=== PATIENT | female | born 2000 | race Caucasian/White ===

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

== ENCOUNTER 2018-03-08 02:28 | Outpatient (CLI) | payer BC, MEDICAID ==
[2018-03-08 02:59] VITALS: BP 134/76
[2018-03-08] MEDS ORDERED: TERBUTALINE 1 MG/ML VIAL SUBQ ONE (03:25)
[2018-03-08 04:04] LABS: BILIRUBIN,URINE NEGATIVE (NEGATIVE); GLUCOSE, URINE (UA) NEGATIVE (NEGATIVE); KETONES,URINE (UA) NEGATIVE (NEGATIVE); LEUKOCYTE ESTERASE, URINE NEGATIVE (NEGATIVE); MUDS CUTOFF CONCENTRATIONS CUTOFF CONC BELOW:; NITRITE,URINE NEGATIVE (NEGATIVE); OCCULT BLOOD,URINE NEGATIVE (NEGATIVE); PH,URINE 6.5 PH (5.0-7.5); PROTEIN,URINE NEGATIVE (NEGATIVE); UROBILINOGEN,URINE 0.2 (NORMAL) E.U./dL (NORMAL)
[2018-03-08 04:08] LABS: CLARITY,URINE CLEAR (CLEAR)
[2018-03-08 04:16] LABS: AMPHETAMINE SCREEN,URINE NEGATIVE (NEGATIVE); BACTERIA,URINE Rare /HPF (None Seen); BENZODIAZEPINES SCREEN, URINE NEGATIVE (NEGATIVE); COCAINE SCREEN URINE NEGATIVE (NEGATIVE); METHADONE SCREEN, URINE NEGATIVE (NEGATIVE); METHAMPHETAMINES SCREEN, URINE NEGATIVE (NEGATIVE); OPIATE SCREEN, URINE NEGATIVE (NEGATIVE); OXYCODONE SCREEN, URINE NEGATIVE (NEGATIVE); PROPOXYPHENE SCREEN, URINE NEGATIVE (NEGATIVE); RBC,URINE 0-5 /HPF (0-5); SQUAMOUS EPITHELIAL CELL,UR FEW Squamous (<= Few); TRICYCLIC ANTIDEPRESSANT,URINE NEGATIVE (NEGATIVE)
[2018-03-08 04:18] LABS: RUPTURE OF MEMBRANES PLUS NEGATIVE (NEGATIVE)
== END 2018-03-08 05:07 | disposition home or self-care (01) ==
LOC: WFO 02:28 → FBP 02:31 → WFO 05:07
PROVIDERS: ATTEND Obstetrics & Gynecology
DX: O47.03 False labor before 37 completed weeks of gestation, third trimester (principal); Z3A.35 35 weeks gestation of pregnancy
CPT/HCPCS: 80306; 81001; 84112; 87086; 96372; 99214

== ENCOUNTER 2018-05-29 20:35 | Emergency (ER) | payer BC, MEDICAID ==
[2018-05-29 20:56] LABS: BILIRUBIN,URINE NEGATIVE (NEGATIVE); GLUCOSE, URINE (UA) NEGATIVE (NEGATIVE); KETONES,URINE (UA) NEGATIVE (NEGATIVE); LEUKOCYTE ESTERASE, URINE NEGATIVE (NEGATIVE); NITRITE,URINE NEGATIVE (NEGATIVE); OCCULT BLOOD,URINE NEGATIVE (NEGATIVE); PROTEIN,URINE NEGATIVE (NEGATIVE); UROBILINOGEN,URINE 0.2 (NORMAL) E.U./dL (NORMAL)
[2018-05-29 20:59] LABS: CLARITY,URINE CLEAR (CLEAR); HCG UR QUAL NEGATIVE
[2018-05-29] MEDS ORDERED: LIDOCAINE PATCH 5% TOP STA (22:19)
--- NOTE | 2018-05-29 22:26 | ED Physician Documentation ---
History of Present Illness - Stated complaint Stated Complaint: L SIDE PX - Chief complaint Chief Complaint: Abd Pain - History obtained from History obtained from: Patient - History of Present Illness Timing: How many weeks ago (1) Worsened by: movement, lifting - Additonal information Additional information: Patient is a 18 year old female with no significant past medical history who is presenting to the emergency department for left sided flank pain. patient states that it has been going on for about the last week or so. Patient states that the pain started after sleeping on a couch. Patient reports that it is worse when she is getting into and out of her car, or when she has to lift her baby. patient denies any nausea, vomiting or abdominal pain. Patient does report a history of kidney stones in the past, the largest being 5mm Review of Systems Ten Systems: 10 systems reviewed and negative Constitutional: denies: Fever, Chills Respiratory: denies: Cough, Hemoptysis, Wheezing GI: denies: Abdominal Pain, Nausea, Vomiting, Constipation, Diarrhea : reports: Dysuria. denies: Frequency, Hematuria, Discharge Skin: denies: Rash, Lesions Musculoskeletal: reports: Back pain. denies: Extremity pain PD PAST MEDICAL HISTORY - Past Surgical History Past Surgical History: Yes - Present Medications Home Medications: Ambulatory Orders Medication Instructions Recorded Confirmed Lidocaine Patch 5% [Lidoderm Patch] 1 each TOP DAILY #14 patch 05/29/18 - Allergies Allergies/Adverse Reactions: Allergies Allergy/AdvReac Type Severity Reaction Status Date / Time Penicillins Allergy Hives Verified 05/29/18 20:42 aspirin AdvReac Anxiety Verified 05/29/18 20:42 - Social History Does the pt smoke?: No Smoking Status: Never smoker Does the pt drink ETOH?: No Does the pt have substance abuse?: No - Immunizations Immunizations are current?: Yes - POLST Patient has POLST: No PD ED PE NORMAL - Vitals Vital signs reviewed: Yes - General General: Alert and oriented X 3, No acute distress, Well developed/nourished - HEENT HEENT: Atraumatic - Cardiac Cardiac: RRR - Respiratory Respiratory: No respiratory distress - Abdomen Abdomen: Soft, Non tender, Non distended - Derm Derm: Normal color, Warm and dry, No rash - Extremities Extremities: No deformity - Neuro Neuro: Alert and oriented X 3 PD ED PE EXPANDED - Back Back: Soft tissue tenderness (tenderness to palpation of left lower back, left fank area, no rash, no erythema) Results - Vitals Vitals: Vital Signs - 24 hr 05/29/18 20:39 Temperature 36.2 C L Heart Rate 85 Respiratory 14 Rate Blood Pressure 115/74 O2 Saturation 99 Oxygen O2 Source Room air - Labs Labs: Laboratory Tests 05/29/18 20:50 Urine Color YELLOW Urine Clarity CLEAR Urine pH 6.0 Ur Specific [place] 1.010 Urine Protein NEGATIVE Urine Glucose (UA) NEGATIVE Urine Ketones NEGATIVE Urine Occult Blood NEGATIVE Urine Nitrite NEGATIVE Urine Bilirubin NEGATIVE Urine Urobilinogen 0.2 (NORMAL) Ur Leukocyte Esterase NEGATIVE Ur Microscopic Review NOT INDICATED Urine Culture Comments NOT INDICATED Urine HCG, Qual NEGATIVE PD MEDICAL DECISION MAKING - ED course Complexity details: reviewed old records, reviewed results, re-evaluated patient , considered differential, d/w patient ED course: Patient was seen and examined at bedside. patient was well appearing and in no distress. patient's urine was collected and within normal limits. there was no sign of infection or renal stone. patient's symptoms were likely musculoskeletal in nature, but no imaging was indicated. Patient was treated with a lidoderm patch. Patient required no further work up and was stable for discharge with outpatient follow up. - Sepsis Event Vital Signs: Vital Signs - 24 hr 05/29/18 20:39 Temperature 36.2 C L Heart Rate 85 Respiratory 14 Rate Blood Pressure 115/74 O2 Saturation 99 Oxygen O2 Source Room air Departure - Departure Disposition: 01 Home, Self Care Clinical Impression: Rib pain on left side Condition: Good Instructions: ED Strain Chest Wall Follow-Up: Taylor Pena ARNP [Primary Care Provider] - As Needed Prescriptions: Lidocaine Patch 5% [Lidoderm Patch] 1 each TOP DAILY #14 patch Comments: Your diagnostics today were within normal limits. there is no sign of infection or kidney stones. Your symptom are likely secondary to a strain in your back/ribs. You should continue with tylenol as needed for pain. You can apply ice, heat or the topical lidoderm patches. You should follow up with your doctor if your symptoms persists. You may return to the emergency department at any time for new, worsening or uncontrollable symptoms.
[2018-05-29 22:32] VITALS: BP 120/71
== END 2018-05-29 22:35 | disposition home or self-care (01) ==
LOC: ED 20:35
DX: O99.89 Other specified diseases and conditions complicating pregnancy, childbirth and the puerperium (principal); R07.81 Pleurodynia
CPT/HCPCS: 81003; 81025; 99283; A9270; 81001; 87086

== ENCOUNTER 2018-12-22 20:58 | Emergency (ER) | payer BC, MEDICAID ==
--- NOTE | 2018-12-22 21:08 | ED Physician Documentation ---
PD HPI URI - Stated complaint Stated Complaint: FLU SYMPTOMS - Chief complaint Chief Complaint: Abd Pain - History obtained from History obtained from: Patient - History of Present Illness Timing - onset: Yesterday Timing details: Abrupt onset, Still present Associated symptoms: Fever, Chills, Sore throat, Dry cough, NVD (nausea with an episode of vomiting this evening. Poor PO intake whole day due to nausea though.) Contributing factors: No: Sick contact Similar symptoms before: Has not had sx before Recently seen: Not recently seen Review of Systems Constitutional: reports: Fever, Chills, Myalgias, Fatigue Throat: reports: Sore throat Cardiac: denies: Chest pain / pressure Respiratory: reports: Cough. denies: Dyspnea GI: reports: Nausea. denies: Vomiting, Diarrhea : denies: Dysuria Musculoskeletal: denies: Neck pain, Back pain Neurologic: reports: Headache. denies: Near syncope (but feeling very lightheaded with standing up.), Altered mental status PD PAST MEDICAL HISTORY - Past Medical History Cardiovascular: None Respiratory: None Neuro: None Endocrine/Autoimmune: None - Past Surgical History Past Surgical History: Yes - Present Medications Home Medications: Ambulatory Orders Medication Instructions Recorded Confirmed Acetaminophen [Tylenol] 650 mg PO ONCE 12/22/18 12/22/18 D-Methorphan/PE/Acetaminophen 1 each PO ONCE 12/22/18 12/22/18 [Theraflu Ms Severe Cold Pckt] Dexamethasone [Decadron] 4 mg PO DAILY #5 tablet 12/22/18 Ondansetron Odt [Zofran] 4 mg TL Q6H PRN #10 tablet 12/22/18 Oseltamivir [Tamiflu] 75 mg PO BID #10 capsule 12/22/18 Tramadol HCl 50 mg PO Q6H PRN #15 tablet 12/22/18 - Allergies Allergies/Adverse Reactions: Allergies Allergy/AdvReac Type Severity Reaction Status Date / Time Penicillins Allergy Hives Verified 12/22/18 21:06 aspirin AdvReac Anxiety Verified 12/22/18 21:06 - Social History Does the pt smoke?: No Smoking Status: Never smoker Does the pt drink ETOH?: No Does the pt have substance abuse?: No - Immunizations Immunizations are current?: Yes - POLST Patient has POLST: No PD ED PE NORMAL - Vitals Vital signs reviewed: Yes - General General: Alert and oriented X 3, No acute distress, Well developed/nourished - HEENT HEENT: Ears normal, Pharynx benign. No: Moist mucous membranes - Neck Neck: Supple, no meningeal sign, No adenopathy - Cardiac Cardiac: RRR (but tachycardic), No murmur - Respiratory Respiratory: Clear bilaterally - Abdomen Abdomen: Normal bowel sounds, Soft, Non tender, Non distended - Derm Derm: Normal color, Warm and dry, No rash - Neuro Neuro: Alert and oriented X 3, No motor deficit, Normal speech Results - Vitals Vitals: Vital Signs - 24 hr 12/22/18 12/22/18 12/22/18 21:02 22:41 23:28 Temperature 36.7 C 37.0 C Heart Rate 115 H 103 H 105 H Respiratory 18 16 18 Rate Blood Pressure 113/68 115/74 108/67 O2 Saturation 100 98 96 Oxygen O2 Source Room air - Labs Labs: Laboratory Tests 12/22/18 21:23 Influenza A (Rapid) Negative Influenza B (Rapid) Negative PD MEDICAL DECISION MAKING - ED course Complexity details: re-evaluated patient (Feeling improved with IV fluids and m edications.), considered differential (This sounds very flulike and she does seem dehydrated with headache and nausea. Some IV fluids with medications will be helpful. Will test for the flu. Discussed pros and cons of Tamiflu and they would opt for it.), d/w patient Departure - Departure Disposition: 01 Home, Self Care Clinical Impression: Flu-like symptoms Condition: Stable Record reviewed to determine appropriate education?: Yes Instructions: ED Flu Follow-Up: Taylor Pena ARNP [Primary Care Provider] - Prescriptions: Dexamethasone [Decadron] 4 mg PO DAILY #5 tablet Ondansetron Odt [Zofran] 4 mg TL Q6H PRN #10 tablet PRN Reason: Nausea / Vomiting Oseltamivir [Tamiflu] 75 mg PO BID #10 capsule Tramadol HCl 50 mg PO Q6H PRN #15 tablet PRN Reason: Pain Comments: This sounds like the flu or some other viral illness similar. Drink lots of fluids. Tylenol or ibuprofen if needed for fevers and aches. Add hydrocodone or tramadol if needed for pains. Use Decadron steroid anti-inflammatory daily further the next 5 days to help with general symptoms. Tamiflu twice daily for 5 days as this sounds like influenza even though your nasal swab is negative (there is an element of false negative rate for the test). Use ondansetron if needed for nausea. Likely will be ill for several more days to a week. Discharge Date/Time: 12/22/18 23:32
[2018-12-22] MEDS ORDERED: SODIUM CHLORIDE 0.9% 1,000 ML IV ONE ×2 (21:18→21:45)
[2018-12-22] MEDS ORDERED: DEXAMETHASONE 10 MG/ML VIAL IVP STA (21:18)
[2018-12-22] MEDS ORDERED: KETOROLAC 15 MG/ML VIAL IVP STA (21:18)
[2018-12-22] MEDS ORDERED: ONDANSETRON 4 MG/2 ML VIAL IVP STA (21:18)
[2018-12-22] MEDS ORDERED: MORPHINE 2 MG/ML CARPUJECT IVP STA (22:28)
[2018-12-22] MEDS ORDERED: ONDANSETRON ODT 4 MG Prepack 2 TL PRN (22:29)
[2018-12-22] MEDS ORDERED: HYDROcod/ACET 5/325 Prepack 4 PO STA (22:29)
[2018-12-22 23:29] VITALS: BP 108/67
== END 2018-12-22 23:32 | disposition home or self-care (01) ==
LOC: ED 20:58
DX: R50.9 Fever, unspecified (principal); R11.2 Nausea with vomiting, unspecified; R51 Headache; R05 Cough
CPT/HCPCS: 87275; 87276; 96361; 96374; 96375; 99283

== ENCOUNTER 2019-06-17 09:52 | Outpatient (CLI) | payer MEDICAID ==
[2019-06-17 10:19] VITALS: BP 128/60
--- NOTE | 2019-06-17 14:18 | Ultrasound Report ---
Reason: PLACENTAL INSUFFICIENCY Procedure Date: 06/17/2019 Accession Number: [id number] / [id number] Procedure: US - OB Biophysical Profile CPT Code: FULL RESULT: EXAM: BIOPHYSICAL PROFILE EXAM DATE: 06/17/2019 01:12 PM. CLINICAL HISTORY: PLACENTAL INSUFFICIENCY. COMPARISON: None. TECHNIQUE: Real-time sonographic evaluation of the fetus performed by the transplant case manager. Multiple outside dealer sales representative static images were saved for review. DATING: Established EGA weeks/days with VERA . GENERAL EVALUATION Roman . Cardiac activity: 154 bpm. movement: Visualized. Presentation: Cephalic. Placenta: Anterior position. No evidence for previa or abruption. Amniotic fluid: Normal. AURELIO 13.8 cm. MVP 5.7 cm. Cervical length: 2.2 cm (transvaginal assessment) BIOPHYSICAL PROFILE Breathing = 2 Movement = 2 Tone = 2 Amniotic Fluid = 2 Total 05/20 IMPRESSION: 1. Roman live intrauterine with gestational age 34 weeks 3 days based on established gestational age. 2. Biophysical profile score 8 of 8. JULIO C
--- NOTE | 2019-06-21 22:31 | PROCEDURE REPORT ---
- HPI Diagnosis/Indication for NST: Decreased movement Current EDU 07/26/19 Gestation 34 Weeks and 3 Days 3 Para 1 Vital Signs Temperature 97.9 F 06/17/19 10:06 Heart Rate 88 06/17/19 10:06 Respiratory Rate 16 06/17/19 10:06 Blood Pressure 128/60 06/17/19 10:06 O2 Saturation 100 06/17/19 10:06 Temperature 97.9 F 06/17/19 10:06 Heart Rate 88 06/17/19 10:06 Respiratory Rate 16 06/17/19 10:06 Blood Pressure 128/60 06/17/19 10:06 O2 Saturation 100 06/17/19 10:06 - NST Procedure NST Procedure Start Date 06/17/19 Start Time 10:08 Stop Time 11:04 Vibroacoustic Stimulation Used No Patient States Movement Yes - Results and Plan Findings/Impression: 19-year-old G3, P1 at 34 weeks 3 days here with decreased movement Category 1 tracing TOCO: Irritable/quiet Reactive reassuring NST. Warning signs reviewed Discharged home with follow-up with primary OB. Final diagnosis:decreased movement; reactive/category 1 tracing
== END 2019-06-17 14:56 | disposition home or self-care (01) ==
LOC: WFO 09:52 → FBP 10:01 → WFO 14:56
PROVIDERS: ATTEND Obstetrics & Gynecology
DX: O36.8130 Decreased fetal movements, third trimester, not applicable or unspecified (principal); Z3A.34 34 weeks gestation of pregnancy
CPT/HCPCS: 59025; 76819; 99214

== ENCOUNTER 2019-06-18 02:58 | Outpatient (CLI) | payer MEDICAID | END 2019-06-18 02:59 | disposition critical access hospital (66) | LOC: EMS 02:58 | PROVIDERS: ATTEND Surgery | DX: O99.89 Other specified diseases and conditions complicating pregnancy, childbirth and the puerperium (principal) | CPT/HCPCS: A0425; A0427; A0999 ==

== ENCOUNTER 2019-06-18 03:14 | Observation (INO) | payer MEDICAID ==
[2019-06-18 03:48] LABS: RUPTURE OF MEMBRANES PLUS NEGATIVE (NEGATIVE)
[2019-06-18] MEDS ORDERED: TERBUTALINE 1 MG/ML VIAL SUBQ ONE ×2 (04:10→04:23)
[2019-06-18] MEDS ORDERED: BETAMETHASONE 30 MG/5 ML VIAL IM ONE (04:22)
[2019-06-18] MEDS ORDERED: BETAMETHASONE 30 MG/5 ML VIAL ONE (04:34)
[2019-06-18] MEDS ORDERED: SODIUM CHLORIDE 0.9% 1,000 ML IV SCH (05:00)
[2019-06-18 05:27] LABS: MUDS CUTOFF CONCENTRATIONS CUTOFF CONC BELOW:
[2019-06-18 05:32] LABS: BILIRUBIN,URINE NEGATIVE (NEGATIVE); GLUCOSE, URINE (UA) NEGATIVE (NEGATIVE); KETONES,URINE (UA) NEGATIVE (NEGATIVE); LEUKOCYTE ESTERASE, URINE NEGATIVE (NEGATIVE); NITRITE,URINE NEGATIVE (NEGATIVE); OCCULT BLOOD,URINE NEGATIVE (NEGATIVE); PH,URINE 7.5 PH (5.0-7.5); PROTEIN,URINE NEGATIVE (NEGATIVE); UROBILINOGEN,URINE 0.2 (NORMAL) E.U./dL (NORMAL)
--- NOTE | 2019-06-18 05:37 | PREOP HISTORY & PHYSICAL ---
DATE OF SERVICE: 06/18/2019 Physician: Alfred Rojo MD IDENTIFICATION: Patient is a 19-year-old G3, P1, AB1 female whose EDC is July 26. This was determined by an 8-week ultrasound. Her last menstrual period is unknown. She is 34.4 weeks. CHIEF COMPLAINT: Suspected spontaneous rupture of membranes. HISTORY OF PRESENT ILLNESS: Patient was at home this night, at which time she peed, and then got up and felt additional fluid leak down her leg. She got in the car and proceeded to go to [place], but got as far as [place] and, because of a large gush of fluid, was brought via ambulance here to the hospital. She has not had any further trickling since arrival here. She has been seen in our labor and delivery yesterday for a nonstress test for a premature aging placenta, at which time she was noted to have a reactive strip, but a solitary deceleration. She had a BPP done, at which time she was noted to have 8/8, AURELIO was 13. Cervical length was 2.2 cm. PAST MEDICAL HISTORY: Positive for childhood leukemia. PAST SURGICAL HISTORY: Positive for wisdom teeth. ALLERGIES 1. ASPIRIN. 2. LATEX. 3. PENICILLIN. CURRENT MEDICATIONS: Those of vitamins. HABITS: Patient denies use of alcohol, tobacco, street or addictive drugs, or tetrahydrocannabinol. SOCIAL HISTORY: Patient is , lives with spouse and child. PHYSICAL EXAMINATION GENERAL: Patient is a well-developed, well-nourished female. She is in no acute distress at this time. VITAL SIGNS: Pulse is 102, blood pressure 122/73, respirations 18, temperature is 37.1. HEENT: Pupils are equal and round. Extraocular muscles intact. Mouth is clear. Thyroid is not enlarged. HEART: Regular rate and rhythm without murmurs. LUNGS: Lung ferro are clear without rales or wheezes. PELVIS: Gravid. It is nontender. Nonstress test shows a reactive category 1 strip. She is having occasional contractions, some of which are uncomfortable. Sterile speculum examination was performed, of which there was a negative pool, negative fern and negative nitrazine. She had a RomPlus also performed, which was interpreted to be negative. The brought in patient's underwear, at which time nitrazine was applied and it reacted to a pH of 6.0. A transabdominal ultrasound was performed, which an AURELIO of 10 was noted. There was a large pocket in the fundal area, which was 7 cm in size. LABORATORY DATA: Patient is O positive. She is rubella nonimmune. Her 50 gram Glucola was 77. IMPRESSION: A 19-year-old G3, P1 at 34.4 weeks, without evidence of rupture of membranes. She is having occasional moderate contractions. Her ultrasound from yesterday showed a 2.2 cm length cervix. We will admit the patient for observation. We will administer subcutaneous terbutaline 0.25 mg. We will see if this cannot cause the contractions to cease. We will also give patient betamethasone 12 mg IM. We will observe for further change or possible fluid leak. TD: 06/18/2019 04:39 ANH
[2019-06-18 05:41] LABS: AMPHETAMINE SCREEN,URINE NEGATIVE (NEGATIVE); BENZODIAZEPINES SCREEN, URINE NEGATIVE (NEGATIVE); COCAINE SCREEN URINE NEGATIVE (NEGATIVE); METHADONE SCREEN, URINE NEGATIVE (NEGATIVE); METHAMPHETAMINES SCREEN, URINE NEGATIVE (NEGATIVE); OPIATE SCREEN, URINE NEGATIVE (NEGATIVE); OXYCODONE SCREEN, URINE NEGATIVE (NEGATIVE); PROPOXYPHENE SCREEN, URINE NEGATIVE (NEGATIVE); TRICYCLIC ANTIDEPRESSANT,URINE NEGATIVE (NEGATIVE)
[2019-06-18 05:43] LABS: CLARITY,URINE CLEAR (CLEAR); RBC,URINE 0-5 /HPF (0-5); SQUAMOUS EPITHELIAL CELL,UR RARE Squamous (<= Few)
[2019-06-18 05:44] LABS: AMORPHOUS SEDIMENT,UR Rare /LPF; BACTERIA,URINE Rare /HPF (None Seen)
[2019-06-18 08:18] VITALS: BP 105/54
--- NOTE | 2019-06-18 09:04 | PROVIDER PROGRESS NOTE ---
Subjective - Prog Note Date Prog Note Date: 06/18/19 Prog Note Time: 09:02 - Subjective Pt reports feeling: Improved (Pt nicolette contractions. no fluid noah. notes good FM.) Objective - Vital Signs/Intake & Output Reviewed Vital Signs: Yes Vital Signs: Vital Signs x48h Temp Pulse Resp BP Pulse Ox 06/18/19 08:10 36.8 C 105 H 16 105/54 L 99 06/18/19 06:33 36.6 C 92 18 106/52 L 100 06/18/19 03:23 37.1 C 102 H 18 122/73 97 - Objective General Appearance: positive: No acute distress (right low back pain.), Alert Abdomen: positive: Non-tender, No organomegaly, Mass (non tender uterus) - Lab Results Other Labs: Lab Results x24hrs 06/18/19 06/18/19 Range/Units 05:10 03:22 Urine Color YELLOW Urine Clarity CLEAR (CLEAR) Urine pH 7.5 (5.0-7.5) PH Ur Specific [place] 1.010 (1.002-1.030) Urine Protein NEGATIVE (NEGATIVE) mg/dL Urine Glucose (UA) NEGATIVE (NEGATIVE) mg/dL Urine Ketones NEGATIVE (NEGATIVE) mg/dL Urine Occult Blood NEGATIVE (NEGATIVE) Urine Nitrite NEGATIVE (NEGATIVE) Urine Bilirubin NEGATIVE (NEGATIVE) Urine Urobilinogen 0.2 (NORMAL) (NORMAL) E.U./dL Ur Leukocyte Esterase NEGATIVE (NEGATIVE) Urine RBC 0-5 (0-5) /HPF Urine WBC 0-3 (0-5) /HPF Ur Squamous Epith Cells RARE Squamous (<= Few) Amorphous Sediment Rare /LPF Urine Bacteria Rare (None Seen) /HPF Urine Culture Comments NOT INDICATED Membranes Rupture NEGATIVE (NEGATIVE) Urine Opiates Screen NEGATIVE (NEGATIVE) Ur Oxycodone Screen NEGATIVE (NEGATIVE) Urine Methadone Screen NEGATIVE (NEGATIVE) Ur Propoxyphene Screen NEGATIVE (NEGATIVE) Ur Barbiturates Screen NEGATIVE (NEGATIVE) Ur Tricyclics Screen NEGATIVE (NEGATIVE) Ur Phencyclidine Scrn NEGATIVE (NEGATIVE) Ur Amphetamine Screen NEGATIVE (NEGATIVE) U Methamphetamines Scrn NEGATIVE (NEGATIVE) U Benzodiazepines Scrn NEGATIVE (NEGATIVE) Urine Cocaine Screen NEGATIVE (NEGATIVE) U Cannabinoids Screen NEGATIVE (NEGATIVE) Assessment/Plan - Problem List (1) contractions Impression: contractions have resolved. no evidence of SROM. Send home and followup with primary District Plant Supervisor. Call Ob and inform of events
== END 2019-06-18 10:00 | disposition home or self-care (01) ==
LOC: FBP 03:14 → WFO 03:14 → FBP 04:38
PROVIDERS: ADMIT Obstetrics & Gynecology; ATTEND Obstetrics & Gynecology
DX: O47.03 False labor before 37 completed weeks of gestation, third trimester (principal); Z3A.34 34 weeks gestation of pregnancy
CPT/HCPCS: 80306; 81001; 84112; 87797; 96372; 99214; G0378; 87086

== ENCOUNTER 2019-06-19 07:29 | Outpatient (CLI) | payer MEDICAID ==
[2019-06-19] MEDS ORDERED: BETAMETHASONE 30 MG/5 ML VIAL IM ONE (07:35)
[2019-06-19 07:52] VITALS: BP 116/76
--- NOTE | 2019-07-08 12:46 | PROVIDER PROGRESS NOTE ---
- HPI Chief Complaint: Labor Current : Vital Signs Temperature 36.8 C 06/19/19 07:50 Heart Rate 90 06/19/19 07:50 Respiratory Rate 16 06/19/19 07:50 Blood Pressure 116/76 06/19/19 07:50 O2 Saturation 100 06/19/19 07:50 Temperature 36.8 C 06/19/19 07:50 Heart Rate 90 06/19/19 07:50 Respiratory Rate 16 06/19/19 07:50 Blood Pressure 116/76 06/19/19 07:50 O2 Saturation 100 06/19/19 07:50 - Procedures NST Procedure: NST Procedure Start Time 10:08 Stop Time 11:04 - Plan Plan: P there for thretened labor. here to recieve second dose of 12 mg betamethazone.
== END 2019-06-19 07:54 | disposition home or self-care (01) ==
LOC: WFO 07:29 → FBP 07:32 → WFO 07:54
PROVIDERS: ATTEND Obstetrics & Gynecology
DX: O60.00 Preterm labor without delivery, unspecified trimester (principal)
CPT/HCPCS: 96372

== ENCOUNTER 2019-06-21 20:09 | Observation (INO) | payer MEDICAID ==
[2019-06-21 21:43] LABS: BILIRUBIN,URINE NEGATIVE (NEGATIVE); GLUCOSE, URINE (UA) NEGATIVE (NEGATIVE); KETONES,URINE (UA) NEGATIVE (NEGATIVE); LEUKOCYTE ESTERASE, URINE NEGATIVE (NEGATIVE); NITRITE,URINE NEGATIVE (NEGATIVE); OCCULT BLOOD,URINE NEGATIVE (NEGATIVE); PROTEIN,URINE NEGATIVE (NEGATIVE); UROBILINOGEN,URINE 0.2 (NORMAL) E.U./dL (NORMAL)
[2019-06-21 21:45] LABS: CLARITY,URINE CLEAR (CLEAR)
[2019-06-21 21:54] LABS: BACTERIA,URINE None Seen /HPF (None Seen); RBC,URINE None Seen /HPF (0-5); SQUAMOUS EPITHELIAL CELL,UR RARE Squamous (<= Few)
[2019-06-21] MEDS ORDERED: SODIUM CHLORIDE FLUSH 0.9% 10 ML SYRINGE IVP PRN (22:21)
[2019-06-21] MEDS ORDERED: ONDANSETRON 4 MG/2 ML VIAL IVP PRN (22:21)
[2019-06-21] MEDS ORDERED: METOCLOPRAMIDE 10 MG/2 ML VIAL IVP PRN (22:21)
--- NOTE | 2019-06-21 22:48 | HISTORY & PHYSICAL EXAMINATION ---
Admit History - : 3 Parity: 1 Care: positive: Other Risk/History: positive: None Complications This : positive: None Smoking Status: Former smoker - Mother's Labs Mother's Blood Type: positive: O Mother's RH: positive: Positive GBS: positive: Group B Step Negative Rubella Status: positive: Non-immune - Other Maternal History Other Maternal History: Ms. mena is a 19-year-old G3, P1 at 35 and 0 weeks estimated gestational age by 16-week ultrasound who presents with labor. has been generally uncomplicated.She has had multiple presentations to [facility] triage. She gets the majority of her care at [facility]. Unknown LMP with strongly positive UCG in late January and dating by US on 02/11/19 at 16w4d giving VERA 07/26/19 Presented on 06/17/2019 for routine NST for "old looking placenta" as requested by her primary OB at and had a category 1 tracing. Discharged to home. She presented on 06/18/2019 for rule out rupture. Negative pooling negative for any negative nitrazine and negative ROM plus.Underwent a transvaginal ultrasound that showed a cervical length of 2.2 cm. No SVE he presented at 34 and 6 with rule out rupture with a negative ROM plus. Received betamethasone for potential late delivery. GBS was negative. She reports that she had a positive vaginitis panel that returned with BV. This was diagnosed by her outside provider at [place]. She was unable to complete her metronidazole treatment. History of review of her personal records through her patient portal indicate that this was diagnosed in April 2019 She states that she has been in bed due to pelvic pain since Friday. She has been up and about today and picked up her [id number] son. She has had worsening pelvic pressure over the course of the day. It appears to be worsening during the course of her triage assessment. No loss of fluid or vaginal bleeding. Endorses movement Denies hx of HSV Short interpregnancy interval: Prior on 03/31/2018 7 #2 oz male, 3 hours of labor Rubella nonimmune PNL: 02/11/19: O+/antibody negative Hematocrit 35.9 platelets 295 RPR nonreactive Urine culture negative HBsAg negative HIV negative Chlamydia negative Gonorrhea negative Rubella nonimmune 02/25/19 Second trimester screen negative 04/16/19 Hematocrit 31.4 Glucola 77 06/17/19 Ultrasound shows fetus in cephalic presentation, anterior placenta, AURELIO 15.1, TVC L2.2. BPP 8 out of 8 GBS negative 06/18/19 Negative U tox ALLERGIES: penicillin, aspirin, latex celery, peanuts, green peppers, lactose MEDS: iron- Intermittently compliant PND Meds/Allgy - Home Medications Home Medications: Ambulatory Orders Medication Instructions Recorded Confirmed Acetaminophen [Tylenol] 650 mg PO ONCE 12/22/18 12/22/18 D-Methorphan/PE/Acetaminophen 1 each PO ONCE 12/22/18 12/22/18 [Theraflu Ms Severe Cold Pckt] Ondansetron Odt [Zofran] 4 mg TL Q6H PRN #10 tablet 12/22/18 Oseltamivir [Tamiflu] 75 mg PO BID #10 capsule 12/22/18 Tramadol HCl 50 mg PO Q6H PRN #15 tablet 12/22/18 dexAMETHasone [Decadron] 4 mg PO DAILY #5 tablet 12/22/18 - Allergies Allergies/Adverse Reactions: Allergies Allergy/AdvReac Type Severity Reaction Status Date / Time green pepper Allergy Unknown Verified 06/18/19 07:05 lactose Allergy Cramps Verified 06/18/19 07:04 latex Allergy Hives Verified 06/18/19 07:01 Penicillins Allergy Hives Verified 12/22/18 21:06 aspirin AdvReac Anxiety Verified 12/22/18 21:06 celery AdvReac Edema Verified 06/18/19 07:02 peanut AdvReac Respiratory Verified 06/18/19 07:02 Review of Systems - Other Findings Other Findings: As per HPI, otherwise remaining systems are negative Physical - Abdominal Exam Vital Signs: Temp Pulse Resp BP Pulse Ox 98.8 F 77 18 111/62 100 06/21/19 20:28 06/21/19 20:28 06/21/19 20:28 06/21/19 20:28 06/21/19 20:28 Contraction Frequency (min/apart): Q2-3 - Monitoring Strip Review: positive: Category I - Presentation Presentation: positive: Vertex - Vaginal Exam Membranes: positive: Membranes intact Dilation (in cm): 1.5 Effacement (%): 90 Station: positive: -2 Cervical Position: positive: Posterior - Other Notes Labor Progress Note/Additional Text: fibronectin: negative SVE unchanged over serial exam over [address] trichomoniasis and vaginitis panel pending Plan for Labor - Plan For Labor I expect patient to be DC'd or transferred within 96 hours.: Yes Plan for Labor: 19-year-old G3, P1 at 35 weeks and 0 days estimated gestational age with contractions in setting of short interpregnancy interval contractions at 35+ 0 wga: fibronectin negative GBS negative Giving 500 cc NS bolus. Okay to repeat if contractions remain frequent after initial bolus Category 1 tracing Will need to transfer to [place] with change in cervical exam given possibility of delivery before 36 weeks estimated gestational age Exam unchanged over 1 hour Continue to monitor
[2019-06-21 22:50] LABS: MUDS CUTOFF CONCENTRATIONS CUTOFF CONC BELOW:
[2019-06-21] MEDS ORDERED: LACTATED RINGERS 500 ML IV SCH (23:00)
[2019-06-21 23:02] LABS: AMPHETAMINE SCREEN,URINE NEGATIVE (NEGATIVE); BENZODIAZEPINES SCREEN, URINE NEGATIVE (NEGATIVE); COCAINE SCREEN URINE NEGATIVE (NEGATIVE); METHADONE SCREEN, URINE NEGATIVE (NEGATIVE); METHAMPHETAMINES SCREEN, URINE NEGATIVE (NEGATIVE); OPIATE SCREEN, URINE NEGATIVE (NEGATIVE); OXYCODONE SCREEN, URINE NEGATIVE (NEGATIVE); PROPOXYPHENE SCREEN, URINE NEGATIVE (NEGATIVE); TRICYCLIC ANTIDEPRESSANT,URINE NEGATIVE (NEGATIVE)
[2019-06-21 23:07] LABS: BASOPHILS % (AUTO) 0.3 %; HGB - HEMOGLOBIN 11.5 g/dL (12.0-16.0); LYMPHOCYTES # (AUTO) 2.4 10^3/uL (1.5-3.5); LYMPHOCYTES % (AUTO) 25.4 %; MEAN CORPUSCULAR HEMOGLOBIN 32.7 pg (27.0-31.0); MEAN CORPUSCULAR HGB CONC 35.2 g/dL (32.0-36.0); MEAN CORPUSCULAR VOLUME 92.9 fL (81.0-99.0); MEAN PLATELET VOLUME 10.4 fL (7.9-10.8); MONOCYTES # (AUTO) 0.7 10^3/uL (0.0-1.0); MONOCYTES % (AUTO) 7.3 %; NEUTROPHILS % (AUTO) 65.2 %; PLT - PLATELET COUNT 280 10^3/uL (130-450); RED BLOOD COUNT 3.52 10^6/uL (4.20-5.40); RED CELL DISTRIBUTION WIDTH 13.2 % (12.0-15.0); WHITE BLOOD COUNT 9.3 x10^3/uL (4.8-10.8)
[2019-06-21 23:51] VITALS: BP 114/52
[2019-06-22] MEDS ORDERED: SODIUM CHLORIDE FLUSH 0.9% 10 ML SYRINGE IVP SCH (01:00)
[2019-06-22 08:43] LABS: CANDIDA GROUP DNA UNRESOLVED (NEGATIVE); CANDIDA KRUSEI DNA UNRESOLVED (NEGATIVE); TRICHOMONAS VAGINALIS DNA UNRESOLVED (NEGATIVE)
[2019-06-23 07:40] LABS: TRICHOMONAS VAGINALIS DNA UNRESOLVED (NEGATIVE)
--- NOTE | 2019-06-24 04:27 | PROVIDER PROGRESS NOTE ---
Subjective - Prog Note Date Prog Note Date: 06/21/19 Prog Note Time: 23:54 - Subjective Pt reports feeling: Improved Subjective: 19-year-old G3, P1 at 35 and 0 presented with contractions. Patient is now status post IV bolus of 500 cc LR. Contractions have ceased. No terbutaline was given. No loss of fluid no vaginal bleeding. Endorses movement. Feels she is ready to be discharged home. Objective - Vital Signs/Intake & Output Intake & Output: Intake & Output 06/21/19 06/22/19 06/23/19 06/24/19 23:59 23:59 23:59 23:59 Intake Total 500 Balance 500 - Objective General Appearance: positive: No acute distress Neck: positive: Nml inspection Respiratory: positive: No respiratory distress Cardiovascular: positive: Regular rate & rhythm Abdomen: positive: Non-tender, Other (Gravid soft and nontender) Skin: positive: Color nml Neurologic/Psychiatric: positive: Oriented x3 - Lab Results Fish Bones: 06/21/19 22:55 Other Labs: Lab Results x24hrs 06/21/19 Range/Units 01:18 Chlam trachomat DNA PCR INDETERMINATE (NEGATIVE) N.gonorrhoeae DNA (PCR) INDETERMINATE (NEGATIVE) T. vaginalis (PCR) UNRESOLVED (NEGATIVE) - Other Results/Comments Other Results/Comments: fibronectin negative UA within normal limits U tox negative GC CT and vaginitis panel were unreadable. Results did not return until after patient been discharged. Assessment/Plan - Problem List (1) contractions Impression: 19-year-old G3, P1 at 35 and 0 weeks with contractions contractions: -Contractions have ceased after IV fluids. -No change in cervical exam of her period of observation. No longer milo. -Patient counseled to increase oral hydration at home. Urine studies were negative Vaginitis panel was pending at time of discharge; returned inconclusive well-being: -Category 1 tracing -GBS negative on 06/18/2019 -Received betamethasone for anticipated late delivery on 06/18/2019 Discharged home. Warning signs reviewed. Has follow-up with [facility] this week. Final diagnosis: contractions without evidence of cervical change
== END 2019-06-22 01:00 | disposition home or self-care (01) ==
LOC: WFO 20:09 → FBP 20:10 → WFO 22:20 → FBP 22:21 → WFO 06-22 01:00 → FBP 06-22 01:00
PROVIDERS: ADMIT Obstetrics & Gynecology; ATTEND Obstetrics & Gynecology
DX: O62.8 Other abnormalities of forces of labor (principal); Z3A.35 35 weeks gestation of pregnancy
CPT/HCPCS: 80306; 81001; 82731; 85025; 86850; 86900; 86901; 87481; 87491; 87591; 87661; 87801; 96360; 99213; G0378; J7120; 87086

== ENCOUNTER 2019-07-01 10:09 | Outpatient (CLI) | payer MEDICAID ==
[2019-07-01 10:28] VITALS: BP 113/70
--- NOTE | 2019-07-01 21:13 | PROCEDURE REPORT ---
- HPI Diagnosis/Indication for NST: Other (premature aging of the placenta) Current EDU 07/26/19 Gestation 36 Weeks and 3 Days 3 Para 1 Vital Signs Temperature 37.2 C 07/01/19 10:24 Heart Rate 85 07/01/19 10:24 Respiratory Rate 16 07/01/19 10:24 Blood Pressure 113/70 07/01/19 10:24 O2 Saturation 100 07/01/19 10:24 Temperature 37.2 C 07/01/19 10:24 Heart Rate 85 07/01/19 10:24 Respiratory Rate 16 07/01/19 10:24 Blood Pressure 113/70 07/01/19 10:24 O2 Saturation 100 07/01/19 10:24 - NST Procedure NST Procedure Start Date 07/01/19 Start Time 10:20 Stop Time 10:52 Vibroacoustic Stimulation Used No Patient States Movement Yes - Results and Plan Findings/Impression: reactive NST Plan: twice weekly NST with BPP.
== END 2019-07-01 11:00 | disposition home or self-care (01) ==
LOC: WFO 10:09 → FBP 10:12 → WFO 11:00
PROVIDERS: ATTEND Obstetrics & Gynecology
DX: O43.893 Other placental disorders, third trimester (principal); Z3A.36 36 weeks gestation of pregnancy
CPT/HCPCS: 59025

== ENCOUNTER 2019-07-02 08:00 | Outpatient (CLI) | payer MEDICAID ==
[2019-07-02 22:53] LABS: TRICHOMONAS VAGINALIS DNA NEGATIVE (NEGATIVE)
== END 2019-07-02 23:59 | disposition home or self-care (01) ==
LOC: LAB.R 08:00
PROVIDERS: ATTEND Obstetrics & Gynecology
DX: O09.93 Supervision of high risk pregnancy, unspecified, third trimester (principal)
CPT/HCPCS: 87491; 87591; 87661

== ENCOUNTER 2019-07-05 09:42 | Outpatient (CLI) | payer MEDICAID ==
[2019-07-05 10:23] VITALS: BP 111/62
--- NOTE | 2019-07-22 10:03 | PROCEDURE REPORT ---
- HPI Diagnosis/Indication for NST: Intrauterine growth restriction Current EDU 07/26/19 Gestation 37 Weeks and 0 Days 3 Para 1 Vital Signs Temperature 36.8 C 07/05/19 10:10 Heart Rate 70 07/05/19 10:10 Respiratory Rate 15 07/05/19 10:10 Blood Pressure 111/62 07/05/19 10:10 O2 Saturation 100 07/05/19 10:10 Temperature 36.8 C 07/05/19 10:10 Heart Rate 70 07/05/19 10:10 Respiratory Rate 15 07/05/19 10:10 Blood Pressure 111/62 07/05/19 10:10 O2 Saturation 100 07/05/19 10:10 - NST Procedure NST Procedure Start Date 07/05/19 Start Time 10:06 Stop Time 10:59 Vibroacoustic Stimulation Used No Patient States Movement Yes - Results and Plan Findings/Impression: The NST was reactive.This was read on 07/05/2019. Plan: Intrauterine at 37 weeks gestation IUGR The patient was discharged home.She will follow-up for her regular next serial NST.
== END 2019-07-05 11:03 | disposition home or self-care (01) ==
LOC: WFO 09:42 → FBP 09:47 → WFO 11:03
PROVIDERS: ATTEND Obstetrics & Gynecology
DX: O36.5930 Maternal care for other known or suspected poor fetal growth, third trimester, not applicable or unspecified (principal); Z3A.37 37 weeks gestation of pregnancy
CPT/HCPCS: 59025

== ENCOUNTER 2019-07-07 13:07 | Outpatient (CLI) | payer MEDICAID ==
[2019-07-07 13:33] VITALS: BP 121/59
[2019-07-07 14:18] LABS: RUPTURE OF MEMBRANES PLUS NEGATIVE (NEGATIVE)
--- NOTE | 2019-07-07 16:42 | PROVIDER PROGRESS NOTE ---
- HPI Chief Complaint: Labor Check Current : Current EDU 07/26/19 Gestation 37 Weeks and 2 Days 3 Para 1 Vital Signs Temperature 36.9 C 07/07/19 13:24 Heart Rate 101 H 07/07/19 13:24 Respiratory Rate 18 07/07/19 13:24 Blood Pressure 121/59 L 07/07/19 13:24 O2 Saturation 99 07/07/19 13:24 Temperature 36.9 C 07/07/19 13:24 Heart Rate 101 H 07/07/19 13:24 Respiratory Rate 18 07/07/19 13:24 Blood Pressure 121/59 L 07/07/19 13:24 O2 Saturation 99 07/07/19 13:24 - Exam /-3/post - Procedures OB Procedure Performed: NST Diagnosis/Indication for NST: Other (ageing placenta) NST Procedure: NST Procedure Start Date 07/07/19 Start Time 13:15 Stop Time 14:40 Vibroacoustic Stimulation Used No Patient States Movement Yes Reactive Service Date of procedure: 07/07/19
== END 2019-07-07 15:25 | disposition home or self-care (01) ==
LOC: WFO 13:07 → FBP 13:08 → WFO 15:25
PROVIDERS: ATTEND Obstetrics & Gynecology
DX: O43.893 Other placental disorders, third trimester (principal); Z3A.37 37 weeks gestation of pregnancy
CPT/HCPCS: 59025; 84112; 99212

== ENCOUNTER 2019-07-12 08:45 | Outpatient (CLI) | payer MEDICAID ==
--- NOTE | 2019-07-13 12:41 | Ultrasound Report ---
Reason: SUPER 3RD TRIMESTER HIGH RISK Procedure Date: 07/12/2019 Accession Number: [id number] / [id number] Procedure: US - OB F/U or Repeat CPT Code: FULL RESULT: EXAM: FOLLOW-UP OBSTETRICAL ULTRASOUND EXAM DATE: 07/12/2019 09:30 AM. CLINICAL HISTORY: Third trimester high-risk . COMPARISON: Outside scan 02/12/2019 report only. TECHNIQUE: Real-time sonographic evaluation of the fetus performed by the sports cartoonist. Additional transvaginal imaging to more accurately evaluate cervical length/placental position/etc. Multiple policy services representative static images were saved for review. DATING: Established EGA 38 weeks 0 days with VERA 07/26/2019 based on prior outside scan. EGA 38 weeks 0 days based on provider stated. EGA 35 weeks 3 days with VERA 08/11/2019 based on the current ultrasound. GENERAL EVALUATION Roman . Cardiac activity: 130 bpm. movement: Visualized. Presentation: Cephalic. Placenta: Anterior position. Amniotic fluid: Normal. AURELIO 20.4 cm. MVP 7.4 cm. BIOMETRY Bi-Parietal Diameter (BPD): 8.8 cm, 35 weeks 6 days Head Circumference (HC): 32.4 cm, 36 weeks 5 days Abdominal Circumference (AC): 31.8 cm, 35 weeks 2 days Femur Length (FL): 6.8 cm, 35 weeks 0 days Estimated Weight: 2677 g, 8.7 percentile for 36 weeks 3 days. ANATOMY Umbilical cord Doppler: Placenta: S/D = 2.87, RI = 0.65 Mid cord: S/D = 3.06, RI = 0.67 Cord insertion: S/D = 4.4, RI = 0.78 MATERNAL STRUCTURES Cervical length 3.7 cm. IMPRESSION: 1. Roman live intrauterine with gestational age 35 weeks 3 days based on current ultrasound. 2. Estimated weight is at 8.7 percentile. 3. Abnormal interval growth compared to previous examination with size approximately 3 weeks less than dates. RADIA
== END 2019-07-12 08:46 | disposition home or self-care (01) ==
LOC: DI 08:45
PROVIDERS: ATTEND Obstetrics & Gynecology
DX: O09.93 Supervision of high risk pregnancy, unspecified, third trimester (principal); Z3A.35 35 weeks gestation of pregnancy
CPT/HCPCS: 76816

== ENCOUNTER 2019-07-12 09:40 | Outpatient (CLI) | payer MEDICAID ==
[2019-07-12 10:07] VITALS: BP 106/62
--- NOTE | 2019-07-13 14:52 | PROCEDURE REPORT ---
- HPI Diagnosis/Indication for NST: Intrauterine growth restriction Current EDU 07/26/19 Gestation 38 Weeks and 0 Days 2 Para 1 Vital Signs Temperature 36.6 C 07/12/19 10:06 Heart Rate 75 07/12/19 10:06 Respiratory Rate 16 07/12/19 10:06 Blood Pressure 106/62 07/12/19 10:06 O2 Saturation 100 07/12/19 10:06 Temperature 36.6 C 07/12/19 10:06 Heart Rate 75 07/12/19 10:06 Respiratory Rate 16 07/12/19 10:06 Blood Pressure 106/62 07/12/19 10:06 O2 Saturation 100 07/12/19 10:06 - NST Procedure NST Procedure Start Date 07/12/19 Start Time 09:46 Stop Time 10:24 Vibroacoustic Stimulation Used No Patient States Movement Yes - Results and Plan Findings/Impression: The NST was reactive. This is being read for Dr. Melissa on 07/13/2019. Plan: The patient was discharged home. She will follow-up in the office for her next regular visit.
== END 2019-07-12 10:38 | disposition home or self-care (01) ==
LOC: WFO 09:40 → FBP 09:41 → WFO 10:38
PROVIDERS: ATTEND Obstetrics & Gynecology
DX: O36.5930 Maternal care for other known or suspected poor fetal growth, third trimester, not applicable or unspecified (principal); Z3A.38 38 weeks gestation of pregnancy
CPT/HCPCS: 59025

== ENCOUNTER 2019-07-15 10:12 | Outpatient (CLI) | payer MEDICAID ==
[2019-07-15 10:26] VITALS: BP 117/71
[2019-07-15] MEDS ORDERED: ONDANSETRON ODT 4 MG TABLET TL SCH (12:30)
--- NOTE | 2019-07-15 13:16 | Ultrasound Report ---
Reason: decelerations on EFM Procedure Date: 07/15/2019 Accession Number: [id number] / [id number] Procedure: US - OB Biophysical Profile CPT Code: FULL RESULT: EXAM: BIOPHYSICAL PROFILE EXAM DATE: 07/15/2019 12:44 PM. CLINICAL HISTORY: Decelerations on EFM. COMPARISON: OB BIOPHYSICAL PROFILE 06/17/2019 1:11 PM, follow-up OB ultrasound 07/13/2019. TECHNIQUE: Real-time sonographic evaluation of the fetus performed by the schedule planning manager. Multiple safety representative static images were saved for review. DATING: Established EGA 30 weeks 3 days with VERA 07/26/2019. GENERAL EVALUATION Roman . Cardiac activity: 132 bpm. movement: Visualized. Presentation: Cephalic. Placenta: Anterior position. No evidence for previa or abruption. Amniotic fluid: Normal. AURELIO 10.7 cm. MVP 4.7 cm. BIOPHYSICAL PROFILE Breathing = 2 Movement = 2 Tone = 2 Amniotic Fluid = 2 Total 05/20 IMPRESSION: 1. Roman live intrauterine with gestational age 38 weeks 3 days based on established VERA. 2. Biophysical profile score 8 of 8. JULIO C
--- NOTE | 2019-07-18 22:36 | PROCEDURE REPORT ---
- HPI Current EDU 07/26/19 Gestation 38 Weeks and 3 Days 2 Para 1 Vital Signs Temperature 98.2 F 07/15/19 10:26 Heart Rate 90 07/15/19 10:26 Respiratory Rate 16 07/15/19 10:26 Blood Pressure 117/71 07/15/19 10:26 O2 Saturation 100 07/15/19 10:26 Temperature 98.2 F 07/15/19 10:26 Heart Rate 90 07/15/19 10:26 Respiratory Rate 16 07/15/19 10:26 Blood Pressure 117/71 07/15/19 10:26 O2 Saturation 100 07/15/19 10:26 - NST Procedure NST Procedure Start Date 07/15/19 Start Time 10:19 Stop Time 11:10 Vibroacoustic Stimulation Used No Patient States Movement Yes - Results and Plan Findings/Impression: Patient is a 19-year-old G2, P1 at 38 weeks 3 days estimated gestational age here for scheduled NST for "aged placenta". Patient had been followed by [facility]. At her ultrasound performed at [facility], it was noted that her placenta seemed aged or calcified. For this reason her prior OB provider recommended twice weekly NSTs and weekly AURELIO's. Patient denies loss of fluid/vaginal bleeding/contractions. Noted periods of decreased movement during the day. Fetus is active at present. EFM 135 moderate variability 15 x 15 accelerations periodic variable decelerations. TOCO: Quiet Given the occasional mild variable decelerations, a ultrasound for AURELIO and BPP was performed to assess for possibility of oligohydramnios. -AURELIO was within normal limits -BPP was 8 out of 8. Extended monitoring was performed after BPP. Category 1 tracing without further decelerations was noted. Warning signs were reviewed. Patient was discharged home with routine OB follow-up as well as continuation of twice-weekly NST and weekly AURELIO INDICATION FOR NST/US: Placental abnormality, "aged placenta on us" DOS 07/15/19
== END 2019-07-15 14:13 | disposition home or self-care (01) ==
LOC: WFO 10:12 → FBP 10:14 → WFO 14:13
PROVIDERS: ATTEND Obstetrics & Gynecology
DX: O43.893 Other placental disorders, third trimester (principal); Z3A.38 38 weeks gestation of pregnancy
CPT/HCPCS: 59025; 76819; Q0162

== ENCOUNTER 2019-07-17 03:13 | Inpatient (IN) | payer MEDICAID ==
[2019-07-17 03:56] LABS: BASOPHILS % (AUTO) 0.5 %; HGB - HEMOGLOBIN 10.9 g/dL (12.0-16.0); LYMPHOCYTES # (AUTO) 2.5 10^3/uL (1.5-3.5); MEAN CORPUSCULAR HEMOGLOBIN 30.4 pg (27.0-31.0); MEAN CORPUSCULAR VOLUME 92.2 fL (81.0-99.0); MEAN PLATELET VOLUME 10.2 fL (7.9-10.8); MONOCYTES # (AUTO) 0.7 10^3/uL (0.0-1.0); MONOCYTES % (AUTO) 7.7 %; NEUTROPHILS % (AUTO) 59.7 %; PLT - PLATELET COUNT 255 10^3/uL (130-450); RED BLOOD COUNT 3.58 10^6/uL (4.20-5.40); RED CELL DISTRIBUTION WIDTH 13.2 % (12.0-15.0); WHITE BLOOD COUNT 8.4 x10^3/uL (4.8-10.8)
[2019-07-17] MEDS ORDERED: OXYTOCIN/DEXTROSE 5 % 30 UNIT/500 ML BAG IV ONE ×2 (03:56→04:52)
[2019-07-17] MEDS ORDERED: LACTATED RINGERS 1,000 ML IV ONE (03:56)
[2019-07-17] MEDS ORDERED: OXYTOCIN 10 UNIT/ML VIAL ONE (03:57)
[2019-07-17] MEDS ORDERED: SODIUM CHLORIDE FLUSH 0.9% 10 ML SYRINGE IVP PRN (04:47)
[2019-07-17] MEDS ORDERED: CARBOPROST TROMETHAMINE 250 MCG/ML AMP IM PRN (04:49)
[2019-07-17] MEDS ORDERED: SIMETHICONE CHEW 80 MG TABLET PO PRN (04:49)
[2019-07-17] MEDS ORDERED: HYDROCORTISONE 1% CREAM 28 GM TUBE PR PRN (04:49)
[2019-07-17] MEDS ORDERED: ONDANSETRON ODT 4 MG TABLET TL PRN (04:49)
--- NOTE | 2019-07-17 05:06 | HISTORY & PHYSICAL EXAMINATION ---
Admit History - : 3 Parity: 2 Care: positive: [facility] Risk/History: positive: Other Smoking Status: Former smoker - Mother's Labs Mother's Blood Type: positive: O Mother's RH: positive: Positive GBS: positive: Group B Step Negative Rubella Status: positive: Non-immune (Ms. Hartman is a 19-year-old G3, P1 at 38 and 5 weeks estimated gestational age by 16-week ultrasound who presents with active labor. Contractionc started late on 07/16/19 pm and ROM noted at 3:30 am. Endorses FM. SVE 8/C/+2 station at presentation. has been generally uncomplicated.She has had multiple presentations to [facility] triage. Transferred care from [facility] after 35 wga. Unknown LMP with strongly positive UCG in late January and dating by US on 02/11/19 at 16w4d giving VERA 07/26/19 Received betamethasone for potential late delivery in early June. GBS was negative. Denies hx of HSV Short interpregnancy interval: Prior on 03/31/2018 7 #2 oz male, 3 hours of labor Rubella nonimmune PNL: 02/11/19: O+/antibody negative Hematocrit 35.9 platelets 295 RPR nonreactive Urine culture negative HBsAg negative HIV negative Chlamydia negative Gonorrhea negative Rubella nonimmune 02/25/19 Second trimester screen negative 04/16/19 Hematocrit 31.4 Glucola 77 06/17/19 Ultrasound shows fetus in cephalic presentation, anterior placenta, AURELIO 15.1, TVC L2.2. BPP 8 out of 8 GBS negative 06/18/19 Negative U tox) Meds/Allgy - Home Medications Home Medications: Ambulatory Orders Medication Instructions Recorded Confirmed Acetaminophen [Tylenol] 650 mg PO ONCE 12/22/18 12/22/18 D-Methorphan/PE/Acetaminophen 1 each PO ONCE 12/22/18 12/22/18 [Theraflu Ms Severe Cold Pckt] Ondansetron Odt [Zofran] 4 mg TL Q6H PRN #10 tablet 12/22/18 Oseltamivir [Tamiflu] 75 mg PO BID #10 capsule 12/22/18 Tramadol HCl 50 mg PO Q6H PRN #15 tablet 12/22/18 dexAMETHasone [Decadron] 4 mg PO DAILY #5 tablet 12/22/18 - Allergies Allergies/Adverse Reactions: Allergies Allergy/AdvReac Type Severity Reaction Status Date / Time green pepper Allergy Unknown Verified 06/18/19 07:05 lactose Allergy Cramps Verified 06/18/19 07:04 latex Allergy Hives Verified 06/18/19 07:01 Penicillins Allergy Hives Verified 12/22/18 21:06 aspirin AdvReac Anxiety Verified 12/22/18 21:06 celery AdvReac Edema Verified 06/18/19 07:02 peanut AdvReac Respiratory Verified 06/18/19 07:02 Review of Systems - Other Findings Other Findings: As per HPI, otherwise remianing systems negative. Physical - Abdominal Exam Vital Signs: 124/60 HR 57 Contraction Frequency (min/apart): Q2 min Contraction Intensity: positive: Strong - Monitoring Heart Rate Baseline: 150 Strip Review: positive: Category I - Presentation Presentation: positive: Vertex - Vaginal Exam Membranes: positive: Membranes ruptured Dilation (in cm): 8 Effacement (%): c Station: positive: 2 - Speculum Exam Speculum Exam Performed: positive: No Findings: positive: Gross leak Plan for Labor - Plan For Labor Plan for Labor: 19 yo at 38+5 wga presents in active labor and with ruptured membranes LABOR: Admitted and delivered precipitously. Uncomplicated Unmedicated delivery. FWB: GBS neg Apgars 9/9 Cont inpatient care
--- NOTE | 2019-07-17 05:26 | DELIVERY NOTE ---
Delivery Note - Infant Delivery Method Infant Delivery Method: positive: Spontaneous vaginal delivery - Presentation Presentation: positive: Vertex, HECTOR - right occiput anterior - Nuchal Cord Nuchal Cord: positive: None - Episiotomy Type Episiotomy Type: positive: None - Laceration Laceration: positive: None - Delivery Outcome Delivery Outcome: positive: Livebirth - Sage : positive: Placed in direct skin contact with mother, Stimulated, [place] used sex: positive: Male - Cord Cord: positive: 3 vessels - Placenta Placenta: positive: Intact, Other (small and calcified. Thickened, adherent membranes) - Estimated Blood Loss Estimated Blood Loss (in cc): 100 - Post Delivery Events Post Delivery Events: positive: No post delivery events - Delivery Comments (Free Text/Narrative) Delivery Comments (Free Text/Narrative): Patient is a 19-year-old G3, P1 who presented in active labor at 38 weeks and 5 days estimated gestational age. has been complicated by calcification of placenta on ultrasound, short interpregnancy interval,and maternal history of childhood leukemia. STAGE I: Patient presented in active labor with initial SVE of 8/complete/+2 station. Patient reports that labor started approximately at 2330 on 07/16/2019. Spontaneous rupture of membranes occurred at home reportedly at 3:30 AM Fluid was clear and without meconium staining. GBS negative; antibiotics were not indicated.No epidural or anesthetic for pain management. She progressed rapidly to complete upon admission.Category 1 tracing throughout stage I. STAGE II: Patient pushed well for approximately 3 contractions, delivering a viable male in HECTOR/vertex presentation at 4:01. The left shoulder was anterior and delivered without difficulty. No nuchal cord. Apgars were 9 and 9. was delivered to maternal abdomen. Delayed cord clamping was performed. After cessation of pulsations, cord was clamped x2 and cut. STAGE III: Placenta was delivered at 4:19; approximately 18 minutes after delivery. Placenta was noted to be small, fibrotic, and calcified. There was prolonged delivery due to thickened, adherent membranes.It was examined and found to be intact. No evidence of trailing/retained membranes. Examination of the perineum revealed no lacerations. EBL was 100 cc. Delivery was well-tolerated and without complication.
[2019-07-17] MEDS ORDERED: MEASLES,MUMPS & RUBELLA VACC 0.5 ML VIAL SUBQ ONE (05:27)
[2019-07-17] MEDS: ACETAMINOPHEN 500 MG TABLET PO PRN ×2 (05:48→17:08)
[2019-07-17] MEDS: IBUPROFEN 600 MG TABLET PO PRN ×4 (05:49→23:58)
[2019-07-17] MEDS: LACTATED RINGERS 1,000 ML IV SCH ×5 (07:28→21:21)
[2019-07-17] MEDS: DOCUSATE SODIUM 100 MG CAPSULE PO PRN ×2 (08:51→20:12)
[2019-07-17] MEDS: SODIUM CHLORIDE FLUSH 0.9% 10 ML SYRINGE IVP SCH ×2 (14:26→17:49)
[2019-07-17] MEDS ORDERED: PSEUDOEPHEDRINE 30 MG TABLET PO PRN ×2 (20:17→21:09)
[2019-07-17] MEDS: PHENOL THROAT SPRAY 177 ML MM PRN (21:14)
[2019-07-17] MEDS: guaiFENesin/DEXTROMETHORPHAN 10 ML UDC PO PRN (21:15)
[2019-07-18] MEDS: PHENOL THROAT SPRAY 177 ML MM PRN ×3 (01:33→13:58)
[2019-07-18] MEDS: ACETAMINOPHEN 500 MG TABLET PO PRN ×2 (01:33→09:02)
[2019-07-18] MEDS: IBUPROFEN 600 MG TABLET PO PRN ×2 (05:52→12:37)
[2019-07-18] MEDS: DOCUSATE SODIUM 100 MG CAPSULE PO PRN (09:03)
[2019-07-18] MEDS: guaiFENesin/DEXTROMETHORPHAN 10 ML UDC PO PRN (09:03)
[2019-07-18 11:59] VITALS: BP 123/64
--- NOTE | 2019-07-18 13:05 | PROVIDER PROGRESS NOTE ---
Subjective - Prog Note Date Prog Note Date: 07/18/19 Prog Note Time: 13:03 - Subjective Pt reports feeling: Improved Subjective: day 2 status post Up and ambulating, tolerating p.o., pain well managed with oral meds, voiding. Patient states she is ready for discharge. Objective - Vital Signs/Intake & Output Vital Signs: Vital Signs x48h Temp Pulse Resp BP Pulse Ox 07/18/19 11:59 98.1 F 83 16 123/64 100 07/18/19 08:51 98.2 F 73 18 116/62 100 Intake & Output: Intake & Output 07/15/19 07/16/19 07/17/19 07/18/19 23:59 23:59 23:59 23:59 Intake Total 500 Output Total 950 Balance -450 - Objective General Appearance: positive: No acute distress Neck: positive: Nml inspection Respiratory: positive: Chest non-tender Cardiovascular: positive: Regular rate & rhythm Abdomen: positive: Non-tender, Other (Fundus firm below the umbilicus) Skin: positive: Color nml Extremities: positive: Non-tender Neurologic/Psychiatric: positive: Oriented x3 - Lab Results Fish Bones: 07/17/19 03:45 - Other Results/Comments Other Results/Comments: 19-year-old G2, P2 now status post : day #2. Meeting goals for discharge. Routine discharge instructions given. Follow-up in 6 weeks.
[2019-07-18] MEDS ORDERED: MEASLES,MUMPS & RUBELLA VACC 0.5 ML VIAL SUBQ ONE (14:00)
== END 2019-07-18 15:20 | disposition home or self-care (01) | DRG 807 ==
LOC: WFO 03:13 → FBP 03:30 → WFO 03:37 → FBP 03:38 → UNDOADMIN 03:38
PROVIDERS: ADMIT Obstetrics & Gynecology; ATTEND Obstetrics & Gynecology
PROC: 10E0XZZ Delivery of Products of Conception, External Approach (ICD-10-PCS; principal; 2019-07-17)
DX: O62.3 Precipitate labor (principal); Z37.0 Single live birth; Z3A.38 38 weeks gestation of pregnancy; Z85.6 Personal history of leukemia; Z87.891 Personal history of nicotine dependence
CPT/HCPCS: 36415; 85025; 99213; A9270; J7120